=== PATIENT | male | born 1960 | race Caucasian/White ===

== ENCOUNTER 2018-04-04 23:17 | Inpatient (IN) ==
--- NOTE | 2018-04-05 00:18 | DR.GENAD ---
HPI - PCP Primary Care Physician: PATRICIA - Complaint/Symptoms Chief Complaint Doctors Comments: Patient is complaining of pain and swelling in his left lower leg with chest pain and SOB. States he bumped his leg 2-3 weeks ago but it did not bother him then. States his left leg with swelling last night and chest pain and he took nitroglycerin x2 last night but none tonight. States he has had stents x2 and is followed by Dr. Gomez. States he has had problems walking without having to stop and rest on his knees to catch his breath. He denies alcohol or tobacco usage. States he has noticed at times his heart rate would go up to 180 and he is not taking any medicines for his heart rate. States he is taking Plavix and aspirin. Chief Complaint:: STARTED HAVING PAIN, SWELLING AND NUMBNESS IN LEG LAST NIGHT WHICH HAS BECAME WORSE TODAY. PATIENT STATES THAT HE DOES NOT REMEMBER DOING ANYTHING TO HIS LEG TO CAUSE IT TO BE THIS WAY. Self Treatment fo Chief Complaint: TOOK HALF A PAIN PILL PRIOR TO COMING - Nurses notes reviewed Nurses Notes Review: Yes - Source History Provided: Patient - Mode of Arrival Mode of Arrival: Ambulatory - Timing Onset of Chief Complaint: 04/04/18 Came on: Gradually - Duration Duration: Constant How lon Duration: Days - Location Location: left leg pain and swelling - Severity Severity: Moderate - Modifying Factors Worsens:: walking and movement Improves:: resting PMH - PMH Past Medical History: Yes Past Medical History: Coronary Artery Disease, GERD, Hypertension, Hypothyroidism Past Medical History Comment: PACEMAKER Past Surgical History: Yes Surgical History: Angioplasty/Stents Past Surgical History Comment: PACEMAKER - Family History History of Family Medical Conditions: Yes Family Medical History: [place], Heart Failure, Hypertension - Social History Does patient currently use any type of tobacco product: No Have you used tobacco products in the last 12 months: No Type of Tobacco Use: None Does any household member use tobacco: No Alcohol Use: None Do you use any recreational Drugs:: No Lives With: Family Lives Where: Home - infectious screening In the last 2 months have you had wt loss of >10#?: NO Have you had fever, night sweats or hemotysis?: No Have you traveled outside the country in the last 6 months?: No Isolation: Standard ROS - Review of Systems Constitutional: No Symptoms Reported Eyes: No Symptoms Reported. negative: See HPI, Eye Pain, Blurred Vision, Tearing, Discharge, Photophobia, Diplopia, Other ENTM: No Symptoms Reported Respiratoy: No Symptoms Reported, Short of Breath Cardiovascular: No Symptoms Reported, Chest Pain, Edema, Palpitations. negative : See HPI, Syncope, Cyanosis, Skin Mottling, Other Gastrointestinal/Abdominal: No Symptoms Reported Genitourinary: No Symptoms Reported. negative: See HPI, Discharge, Dysuria, Frequency, Hematuria, Pain, Bleeding, Other Neurological: No Symptoms Reported, Tremors, Weakness, Dizziness Musculoskeletal: No Symptoms Reported, Leg (pain and swelling) Integumentary: No Symptoms Reported Hematologic/Lymphatic: No Symptoms Reported Endocrine: No Symptoms Reported Psychiatric: No Symptoms Reported. negative: See HPI, Anxiety, Depression, Hallucinations, Excessive crying, Suicidal, Other PE - General Limitations: No Limitations General Appearance: Alert, In Distress (mild) - Head Head Exam: Normal Inspection, Atraumatic, Normocephalic - Eyes Eye exam: Normal Appearance, PERRL, EOMI. negative: Scleral Icterus, Conjunctival Injection, Nystagmus, Miosis, Mydrasis, Periorbital Swelling, Periorbital Tenderness, Other - ENT ENT Exam: Normal Exam, Normal Oropharynx, Normal External Ear Exam, Mucous Membranes Moist, TM's Normal Bilaterally External Ear Exam: Normal External Inspection TM/Canal Exam: Bilateral Normal Nose Exam: Normal Nose Exam Mouth Exam: Normal Inspection Throat Exam: Normal Inspection - Neck Neck Exam: Normal Inspection, Full ROM, Trachea Midline. negative: Tenderness, Meningismus, Lymphadenopathy, Thyromegaly, Other - Chest Chest Inspection: Normal Inspection, Symmetric Chest Wall Rise - Respiratory Respiratory Exam: Normal Lung Sounds Bilat Respiratory Exam: Bilateral Clear to Auscultation - Cardiovascular Cardiovascular Exam: Regular Rate, Normal Rhythm, Normal Heart Sounds - Abdominal Exam Abdominal Exam: Normal Inspection, Normal Bowel Sounds, Soft Abdominal Tenderness: negative: RUQ, RLQ, LUQ, LLQ, Epigastrium, Suprapubic, Diffuse, Mild, Moderate, Severe, Other - Extremities Extremities Exam: Normal Inspection, Full ROM, Tenderness (left lower leg with ecchymosis middle leg with edema 2+; no calf tenderness), Normal Capillary Refill, Edema - Back Back Exam: Normal Inspection, Full ROM. negative: Tenderness, (R) CVA Tenderness, (L) CVA Tenderness, Muscle Spasm, Paraspinal Tenderness, Vertebral Tenderness, Rashes, (R) Sciatic Notch Tenderness, (L) Sciatic Notch Tendern, (R ) Straight Leg Raise, (L) Straight Leg Raise, Other - Neurologic Neurological Exam: Alert, Oriented X3, CN II-XII Intact, Reflexes Normal. negative: Normal Gait (gait not tested) - Psychiatric Psychiatric Exam: Normal Affect, Normal Mood - Skin Skin Exam: Warm, Dry, Intact, Normal Color - Vital Signs Vitals: Temperature 98.3 F Pulse Rate 64 Respiratory Rate 18 Blood Pressure 130/70 O2 Sat by Pulse Oximetry 97 Course - Consultation Called: :07 Call Returned: 02:07 (Patient to be admitted) - Education/Counseling Education/Counseling: Patient, Family Educated On: Treatment, Diagnosis, Needs for Follow Up ROR - Labs Reviewed Laboratory Results Reviewed?: Yes (All labs and x-ray results reviewed and discussed with patient and family) Result Diagrams: 04/05/18 00:29 04/05/18 00:29 - XRAY XRAY Interpreted by: Radiologist (CXR: Cardiomegaly without severe edema or other acute abnormality.) - EKG Rate: 71 [place]: Normal Rhythm: PVCs, Paced ST: Nonsp - Labs Reviewed Laboratory: WBC 6.6 X10^3/uL (3.6-10.0) 04/05/18 00: RBC 4.55 X10^6/uL (4.7-6.0) L 04/05/18 00:29 Hgb 13.6 g/dL (13.5-18.0) 04/05/18 00: Hct 40.3 % (42.0-54.0) L 04/05/18 00: MCV 88.5 fL (80.0-100.0) 04/05/18 00:29 MCH 29.9 pg (27.0-34.0) 04/05/18 00: MCHC 33.8 g/dL (33.0-35.0) 04/05/18 00: RDW 14.9 % (11.6-16.5) 04/05/18 00: Plt Count 268 X10^3/uL (150.0-450.0) 04/05/18 00: MPV 7.7 fL (7.4-11.0) 04/05/18 00: Neut % (Auto) 50.1 % (42.0-75.0) 04/05/18 00: Lymph % (Auto) 36.1 % (21.0-51.0) 04/05/18 00: [place] % (Auto) 8.9 % (0.0-13.0) 04/05/18 00: Eos % (Auto) 3.8 % (0.9-2.9) H 04/05/18 00: Baso % (Auto) 1.1 % (0.2-1.0) H 04/05/18 00:29 Neut # (Auto) 3.3 x10^3/uL (2.2-4.8) 04/05/18 00: Lymph # (Auto) 2.4 X10^3/uL (1.3-2.9) 04/05/18 00: [place] # (Auto) 0.6 x10^3/uL (0.3-0.8) 04/05/18 00: Eos # (Auto) 0.3 x10^3/uL (0.0-0.2) H 04/05/18 00: Baso # (Auto) 0.1 X10^3/uL (0.0-0.1) 04/05/18 00: Absolute Nucleated RBC 0.0 /100WBC 04/05/18 00: INR Target Range - 04/05/18: INR 1.02 (0.8-1.3) 04/05/18 00: APTT 26.8 SECONDS (22.9-36.5) 04/05/18 00: PTT Comment - 04/05/18 00:29 D-Dimer 274 ng/mL (0-400) 04/05/18 00:29 Sodium 143 mmol/L (136-145) 04/05/18 00:29 Corrected Sodium TNP 04/05/18: Potassium 4.1 mmol/L (3.5-5.1) 04/05/18 00: Chloride 109 mmol/L (98-107) H 04/05/18 00: Carbon Dioxide 24.9 mmol/L (21-32) 04/05/18 00: BUN 15 mg/dL (7-18) 04/05/18 00:29 Creatinine 1.46 mg/dL (0.70-1.30) H 04/05/18 00:29 Est GFR (MDRD) Af Amer > 60 (>60) 04/05/18 00:29 Est GFR (MDRD) Non-Af 53 (>60) L 04/05/18 00:29 Glucose 106 mg/dL (65-99) H 04/05/18 00:29 Calcium 8.4 mg/dL (8.5-10.1) L 04/05/18 00:29 Corrected Calcium TNP 04/05/18 00:29 Magnesium 2.1 mg/dL (1.7-2.9) 04/05/18 00:29 Total Bilirubin 0.40 mg/dL (0.2-1.0) 04/05/18 00:29 AST 22 Units/L (15-37) 04/05/18 00:29 ALT 30 Units/L (12-78) 04/05/18 00:29 Alkaline Phosphatase 101 Units/L (46-116) 04/05/18 00:29 Creatine Kinase 272 Units/L (39-308) 04/05/18 00:29 CK-MB (CK-2) 3.1 ng/mL (0-4.0) 04/05/18 00: CK/CKMB % Calc 1.1 % (<4) 04/05/18 00: Troponin I < 0.02 ng/mL (0-1.5) 04/05/18 00:29 B-Natriuretic Peptide 92.3 pg/mL (0-79) H 04/05/18 00:29 Total Protein 7.0 g/dL (6.4-8.2) 04/05/18 00:29 Albumin 3.5 g/dL (3.4-5.0) 04/05/18 00:29 Globulin 3.5 g/dL (2.5-4.5) 04/05/18 00:29 Albumin/Globulin Ratio 1.0 Ratio (1.1-2.1) L 04/05/18 00:29 - Diagnosis Discharge Problem: Chest pain, rule out acute myocardial infarction, Ventricular trigeminy, Cardiomegaly, Left leg swelling Chronic kidney disease Qualifiers: Chronic kidney disease stage: stage 3 (moderate) Qualified Code(s): N18.3 - Chronic kidney disease, stage 3 (moderate) - Discharge Plan Disposition: ADMITTED INPATIENT Condition: Stable - Follow ups/Referrals Follow ups/Referrals: MALACHI GOMEZ [Primary Care Provider] - 3 days - Instructions
[2018-04-05 00:39] LABS: BASOPHILS # (AUTO) 0.1 X10^3/uL (0.0-0.1); BASOPHILS % (AUTO) 1.1 % (0.2-1.0); EOSINOPHILS # (AUTO) 0.3 x10^3/uL (0.0-0.2); EOSINOPHILS % (AUTO) 3.8 % (0.9-2.9); HEMATOCRIT 40.3 % (42.0-54.0); HEMOGLOBIN 13.6 g/dL (13.5-18.0); LYMPHOCYTES # (AUTO) 2.4 X10^3/uL (1.3-2.9); LYMPHOCYTES % (AUTO) 36.1 % (21.0-51.0); MEAN CORPUSCULAR HEMOGLOBIN 29.9 pg (27.0-34.0); MEAN CORPUSCULAR HGB CONC 33.8 g/dL (33.0-35.0); MEAN CORPUSCULAR VOLUME 88.5 fL (80.0-100.0); MEAN PLATELET VOLUME 7.7 fL (7.4-11.0); MONOCYTES # (AUTO) 0.6 x10^3/uL (0.3-0.8); MONOCYTES % (AUTO) 8.9 % (0.0-13.0); NEUTROPHILS # (AUTO) 3.3 x10^3/uL (2.2-4.8); NEUTROPHILS % (AUTO) 50.1 % (42.0-75.0); PLATELET COUNT 268 X10^3/uL (150.0-450.0); RED BLOOD COUNT 4.55 X10^6/uL (4.7-6.0); RED CELL DISTRIBUTION WIDTH 14.9 % (11.6-16.5); WHITE BLOOD COUNT 6.6 X10^3/uL (3.6-10.0)
[2018-04-05] MEDS: NS 1000 ML 1,000 ML IV SCH ×2 (00:49→16:48)
--- NOTE | 2018-04-05 00:57 | RAD ---
Chest AP portable Indication: Chest pain and tightness in the chest Findings: There is cardiomegaly with pacemaker leads. There is no pneumothorax or effusion. Chronic l j luis changes noted without consolidation. Impression: Cardiomegaly without severe edema or other acute abnormality. Follow-up with PA and later al chest as needed Reported By:
[2018-04-05 01:01] LABS: ALANINE AMINOTRANSFERASE 30 Units/L (12-78); ALBUMIN 3.5 g/dL (3.4-5.0); ALKALINE PHOSPHATASE 101 Units/L (46-116); ASPARTATE AMINO TRANSFERASE 22 Units/L (15-37); BLOOD UREA NITROGEN 15 mg/dL (7-18); CALCIUM 8.4 mg/dL (8.5-10.1); CARBON DIOXIDE 24.9 mmol/L (21-32); CHLORIDE 109 mmol/L (98-107); CKMB % 1.1 % (<4); CREATINE KINASE 272 Units/L (39-308); CREATINE KINASE MB 3.1 ng/mL (0-4.0); CREATININE 1.46 mg/dL (0.70-1.30); MAGNESIUM 2.1 mg/dL (1.7-2.9); SODIUM 143 mmol/L (136-145); TROPONIN I < 0.02 ng/mL (0-1.5); eGFR NON BLACK RACES 53 (>60)
--- NOTE | 2018-04-05 01:56 | RAD ---
Left tibia and fibula-two views, 4 images Indication: Pain and swelling. Numbness. Findings: Minimal medial femorotibial joint space narrowing noted. Tibiotalar joint is intact. No swe lling is seen about the ankle. There is mild pretibial soft tissue swelling without cortical lucency or malalignment seen. Impression: Soft tissue swelling about the foreleg, particularly anteriorly without acute osseous abn ormality or fracture. Reported By:
[2018-04-05] MEDS: NITROSTAT SL PRN ×6 (04:00→06:01)
[2018-04-05] MEDS ORDERED: NITROSTAT SL ONE (04:01)
[2018-04-05] MEDS ORDERED: MORPHINE SULFATE INJ 2 MG INJ ONE (04:39)
[2018-04-05] MEDS: MORPHINE SULFATE INJ 2 MG INJ IVP PRN ×3 (04:40→13:48)
[2018-04-05] MEDS ORDERED: LOPRESSOR TAB 25 MG PO SCH (05:00)
[2018-04-05 05:05] VITALS: BMI 29.6
[2018-04-05] MEDS ORDERED: HEPARIN SODIUM IN D5W 25,000 UNITS/500 ML BAG IV ONE (06:18)
[2018-04-05] MEDS ORDERED: HEPARIN SODIUM INJ 5000 UNITS IVP ONE (06:24)
[2018-04-05] MEDS: HEPARIN SODIUM IN D5W 25,000 UNITS/500 ML BAG IV PRN (06:38)
[2018-04-05 06:42] LABS: BASOPHILS # (AUTO) 0.1 X10^3/uL (0.0-0.1); BASOPHILS % (AUTO) 1.3 % (0.2-1.0); EOSINOPHILS # (AUTO) 0.2 x10^3/uL (0.0-0.2); EOSINOPHILS % (AUTO) 4.7 % (0.9-2.9); HEMATOCRIT 37.6 % (42.0-54.0); HEMOGLOBIN 12.9 g/dL (13.5-18.0); LYMPHOCYTES # (AUTO) 2.1 X10^3/uL (1.3-2.9); LYMPHOCYTES % (AUTO) 39.6 % (21.0-51.0); MEAN CORPUSCULAR HEMOGLOBIN 30.5 pg (27.0-34.0); MEAN CORPUSCULAR HGB CONC 34.3 g/dL (33.0-35.0); MEAN CORPUSCULAR VOLUME 88.8 fL (80.0-100.0); MEAN PLATELET VOLUME 7.7 fL (7.4-11.0); MONOCYTES # (AUTO) 0.4 x10^3/uL (0.3-0.8); MONOCYTES % (AUTO) 8.4 % (0.0-13.0); NEUTROPHILS # (AUTO) 2.4 x10^3/uL (2.2-4.8); PLATELET COUNT 230 X10^3/uL (150.0-450.0); RED BLOOD COUNT 4.23 X10^6/uL (4.7-6.0); RED CELL DISTRIBUTION WIDTH 14.5 % (11.6-16.5); WHITE BLOOD COUNT 5.3 X10^3/uL (3.6-10.0)
[2018-04-05 06:56] LABS: ALANINE AMINOTRANSFERASE 28 Units/L (12-78); ALBUMIN 3.2 g/dL (3.4-5.0); ALKALINE PHOSPHATASE 93 Units/L (46-116); ASPARTATE AMINO TRANSFERASE 21 Units/L (15-37); BLOOD UREA NITROGEN 14 mg/dL (7-18); CALCIUM 8.1 mg/dL (8.5-10.1); CARBON DIOXIDE 24.5 mmol/L (21-32); CHLORIDE 109 mmol/L (98-107); COR CA(FOR HYPOALB) 8.7 mg/dL (8.5-10.1); CREATININE 1.29 mg/dL (0.70-1.30); SODIUM 142 mmol/L (136-145); TOTAL PROTEIN 6.4 g/dL (6.4-8.2); eGFR NON BLACK RACES > 60 (>60)
[2018-04-05 07:28] LABS: CKMB % 1.1 % (<4); CREATINE KINASE 238 Units/L (39-308); CREATINE KINASE MB 2.7 ng/mL (0-4.0); TROPONIN I < 0.02 ng/mL (0-1.5)
[2018-04-05 08:02] LABS: CHOL/HDL RATIO 7.7 (0.0-5.0)
[2018-04-05] MEDS ORDERED: NITROGLYCERIN IV PREMIX 50 MG 50 MG/250 ML BAG IV PRN (10:21)
[2018-04-05] MEDS ORDERED: ASPIRIN EC 81 MG PO ONE (12:40)
[2018-04-05] MEDS: PROTONIX TAB 40 MG PO SCH (12:45)
[2018-04-05] MEDS: ASPIRIN 81 MG CHEWTAB PO SCH (12:45)
[2018-04-05] MEDS: PLAVIX PO SCH (12:45)
[2018-04-05] MEDS: SYNTHROID 112 mcg TAB PO SCH (12:45)
[2018-04-05 13:17] LABS: CKMB % 1.2 % (<4); CREATINE KINASE 215 Units/L (39-308); CREATINE KINASE MB 2.5 ng/mL (0-4.0); TROPONIN I < 0.02 ng/mL (0-1.5)
[2018-04-05] MEDS ORDERED: MORPHINE SULFATE INJ 2 MG INJ IVP PRN (13:52)
--- NOTE | 2018-04-05 14:55 | VAS ---
HISTORY: Bilateral lower extremity pain and chest pain Study: Bilateral lower extremity venous Doppler Comparison: None TECHNIQUE: Multiple keane scale as well as spectral and color flow Doppler images of the deep venous system were obtained of the right and left lower extremity. FINDINGS: The deep venous system of the right and left lower extremities was evaluated from the level of the co mmon femoral vein through the popliteal vein. Normal color flow and augmentation can be observed. I n addition, normal compression is seen throughout the deep venous system. IMPRESSION: Negative for DVT. Reported By:
[2018-04-05] MEDS ORDERED: LOPRESSOR INJ 5 MG AMP IVP ONE (17:58)
[2018-04-05] MEDS ORDERED: LOPRESSOR INJ 5 MG AMP ONE (18:03)
[2018-04-05] MEDS: LOPRESSOR TAB 50 MG PO SCH ×2 (19:03→22:45)
[2018-04-05] MEDS ORDERED: FLOMAX PO SCH (21:00)
[2018-04-05] MEDS ORDERED: CRESTOR TAB 10 MG PO SCH (21:00)
--- NOTE | 2018-04-05 23:51 | DR.H&P ---
H&P - History & Physical for Day of: H&P Date: 04/05/18 - Chief Complaint Chief Complaint: BILATERAL LEG PAIN, CHEST PAIN, SOB - History of Present Illness History of Present Illness: IS A 58 YEAR OLD PATIENT OF TERRENCE Harmon WHO PRESENTED TO THE EMERGENCY ROOM WITH COMPLAINTS OF BILATERAL LEG PAIN AND SWELLING. HE REPORTS THAT SYMPTOMS STARTED ON DAY AGO AND HAS PROGREESIVELY GOTTEN WORSE. HE DENIES KNOWLEDGE OF INJURY. HE ALSO REPORTS CHEST PAIN AND SHORTNESS OF BREATH. PATIENT STATES THAT HE TOOK NITROGLYCERINE X 2 LAST NIGHT, BUT NONE SINCE. HE HAS A HISTORY OF CARDIAC STENTS X 2 THAT WERE PLACED IN . PATIENT REPORTS TWO OTHER BLOCKAGES THAT WERE LESS THAN 50%. HE ALSO REPORTS THAT HE HAS NOTICED HIS HEARTRATE INCREASE TO 180BPM AT TIMES. HE CURRENTLY TAKES ASPIRIN, PLAVIX, AND ATENOLOL. ON ARRIVAL TO THE ER, VITALS WERE 98.3-64-18-97%-130/70. LABS WERE OBTAINED. ABNORMAL LAB VALUES INCLUDE THE FOLLOWING: RBC 4.55, HCT 40.3, CHLORIDE 109, CREATININE 1.46, GLUCOSE 106, CALCIUM 8.4, BNP 92.3, TRIGLYCERIDES 189, CHOLESTEROL 238, LDL 169, HDL 31. CARDIAC ENZYMES WITHIN NORMAL LIMITS. EKG REVEALS ATRIAL PACED COMPLEXES WITH HR 71, VENTRICULAR TRIGEMINY. CHEST XRAY OBTAINED AND REVEALED: There is cardiomegaly with pacemaker leads. There is no pneumothorax or effusion. Chronic lung changes noted without consolidation. A LEFT TIB/FIB XRAY WAS OBTAINED AND REVEALED: Soft tissue swelling about the foreleg, particularly anteriorly without acute osseous abnormality or fracture. HE WAS ADMITTED TO THE HOSPITAL FOR FURTHER EVALUATION AND TREATMENT OF CHEST PAIN, RULE OUT AMI AND VENTRICULAR TRIGEMINY. WE PLANNED TO OBTAIN SERIAL CARDIAC ENZYMES AND EKG AND CONTINUE TO MONITOR PATIENT. FOLLOWING ADMISSION, PATIENT BEGAN WITH RUNE OF VENTRICULAR TACHYCARDIA. HE REPORTED THAT CHEST PAIN AND SHORTNESS OF BREATH COMES AND GOES. AT APPROXIMATELY 0400, STAFF REPORTS THAT HE WAS NOTED WITH A 2 MINUTE, 7 SECOND RUN OF VTACH WITH ASSOCIATED RIGHT HAND AND LEFT FOOT NUMBNESS. HE WAS GIVEN NITROGLYCERIN AND STATED THAT PAIN HAD RESOLVED. HIS ATENOLOL WAS DISCONTINUED AND PATIENT WAS STARTED ON METOPROLOL 25MG PO BID. AFTER CONTINUED RUNS OF VTACH AND INTEREMITTENT CHEST PAIN, HE WAS STARTED ON A HEPARIN DRIP AND NITROGLYCERIN DRIP. WE ALSO STARTED HIM ON CRESTOR 20MG PO HS AND PLANNED TO OBTAIN BILATERAL LOWER EXTREMITY VENOUS DOPPLERS. OTHERWISE, WE PLAN TO FOLLOW UP WITH SERIAL CARDIAC ENZYMES AND EKGS, MAINTENANCE MANAGER, AND CONTINUE TO MONITOR PATIENT. - Past Medical History Past Medical History: Coronary Artery Disease, GERD, Hypertension, Hypothyroidism - Past Surgical History Surgical History: Angioplasty/Stents - Family History Family Medical History: [place], Heart Failure, Hypertension - Social History Does patient currently use any type of tobacco product: No Have you used tobacco products in the last 12 months: No Type of Tobacco Use: None Does any household member use tobacco: No Alcohol Use: None Drug Use: None - Medications Home Medications: naproxen [From Naprosyn] Allergy (Verified 04/04/18 23:31) CONTINUE taking the following medications aspirin 81 mg PO ONCE 04/04/18 [History] clopidogrel [Plavix] 1 tab PO DAILY 04/04/18 [History] levothyroxine 112 mcg PO ONCE 04/04/18 [History] pantoprazole [Protonix] 1 tab PO DAILY 04/04/18 [History] tamsulosin [Flomax] 1 tab PO HS 04/04/18 [History] - Review of Systems Constitutional: No Symptoms Reported Eyes: No Symptoms Reported ENT: No Symptoms Reported Respiratory: Shortness of Breath Cardiovascular: Chest Pain Gastrointestinal: No Symptoms Reported Genitourinary: No Symptoms Reported Musculoskeletal: Leg Pain Skin: No Symptoms Reported Neurological: No Symptoms Reported - Physical Exam Vital Signs: Temperature 97.7 F Pulse Rate [Apical] 70 Pulse Rate 64 Respiratory Rate 14 Blood Pressure [Left Arm] 131/89 Blood Pressure 180/118 O2 Sat by Pulse Oximetry 95 Oriented: Normal Eyes: Normal Ear: Normal Nose: Normal Throat: Normal Respiratory: Diminished Throughout Cardiovascular: Normal, Irregular. negative: S3, S4, Murmur : Normal Auscultation: Bowel Sounds: Normal Palpation: Normal Tenderness: Normal Skin: Normal Musculoskeletal: Normal Psychiatric: Normal Mood Description: Calm Affect: Normal Speech Pattern: Clear - Assessment/Plan (1) Chest pain, rule out acute myocardial infarction Status: Acute Plan: ADMIT, SERIAL CARDIAC ENZYMES & EKG, HEPARIN DRIP, NITRO DRIP, CONTINUE TO MONITOR (2) Cardiac arrhythmia Qualifiers: Arrhythmia type: ventricular tachycardia Qualified Code(s): I47.2 - Ventricular tachycardia Status: Acute Plan: SERIAL CARDIAC ENZYMES & EKG, HEPARIN DRIP, NITRO DRIP, CONTINUE TO MONITOR (3) Left leg swelling Status: Acute Plan: OBTAIN BLE VENOUS DOPPLER, CONTINUE TO MONITOR - Allergies Allergies/Adverse Reactions: Allergies Allergy/AdvReac Type Severity Reaction Status Date / Time naproxen [From Naprosyn] Allergy Verified 04/04/18 23:31
[2018-04-06] MEDS: NS 1000 ML 1,000 ML IV SCH ×2 (02:13→05:27)
[2018-04-06] MEDS: HEPARIN SODIUM IN D5W 25,000 UNITS/500 ML BAG IV PRN (02:13)
[2018-04-06 07:11] LABS: BASOPHILS % (AUTO) 0.9 % (0.2-1.0); EOSINOPHILS # (AUTO) 0.2 x10^3/uL (0.0-0.2); EOSINOPHILS % (AUTO) 4.8 % (0.9-2.9); HEMATOCRIT 41.2 % (42.0-54.0); HEMOGLOBIN 13.8 g/dL (13.5-18.0); LYMPHOCYTES # (AUTO) 1.4 X10^3/uL (1.3-2.9); LYMPHOCYTES % (AUTO) 29.3 % (21.0-51.0); MEAN CORPUSCULAR HEMOGLOBIN 29.8 pg (27.0-34.0); MEAN CORPUSCULAR HGB CONC 33.5 g/dL (33.0-35.0); MEAN CORPUSCULAR VOLUME 88.8 fL (80.0-100.0); MEAN PLATELET VOLUME 7.5 fL (7.4-11.0); MONOCYTES # (AUTO) 0.3 x10^3/uL (0.3-0.8); MONOCYTES % (AUTO) 6.3 % (0.0-13.0); NEUTROPHILS # (AUTO) 2.8 x10^3/uL (2.2-4.8); NEUTROPHILS % (AUTO) 58.7 % (42.0-75.0); PLATELET COUNT 226 X10^3/uL (150.0-450.0); RED BLOOD COUNT 4.64 X10^6/uL (4.7-6.0); RED CELL DISTRIBUTION WIDTH 14.8 % (11.6-16.5); WHITE BLOOD COUNT 4.8 X10^3/uL (3.6-10.0)
[2018-04-06 07:19] LABS: ALANINE AMINOTRANSFERASE 27 Units/L (12-78); ALBUMIN 3.1 g/dL (3.4-5.0); ALKALINE PHOSPHATASE 99 Units/L (46-116); ASPARTATE AMINO TRANSFERASE 19 Units/L (15-37); BLOOD UREA NITROGEN 13 mg/dL (7-18); CALCIUM 8.3 mg/dL (8.5-10.1); CARBON DIOXIDE 25.3 mmol/L (21-32); CHLORIDE 107 mmol/L (98-107); CREATININE 1.03 mg/dL (0.70-1.30); SODIUM 140 mmol/L (136-145); TOTAL PROTEIN 6.5 g/dL (6.4-8.2); eGFR NON BLACK RACES > 60 (>60)
[2018-04-06] MEDS: LOPRESSOR TAB 50 MG PO SCH (09:12)
[2018-04-06] MEDS: PLAVIX PO SCH (09:17)
[2018-04-06] MEDS: PROTONIX TAB 40 MG PO SCH (09:17)
[2018-04-06] MEDS ORDERED: NITRODUR PATCH 0.4 MG/HR TD SCH (10:00)
[2018-04-06] MEDS: ASPIRIN 81 MG CHEWTAB PO SCH (11:12)
[2018-04-06] MEDS: SYNTHROID 112 mcg TAB PO SCH (11:12)
[2018-04-06 13:23] VITALS: BP 157/96
[2018-04-06] MEDS ORDERED: CHECK PATCH XX SCH (21:00)
--- NOTE | 2018-04-18 00:02 | DR.CARTERD ---
- Discharge Summary for: Discharge Summary for Date of:: 04/06/18 - Admission Date Date of Admission: 04/05/18 - Admission Diagnoses Admission Diagnosis: (1) Chest pain, rule out acute myocardial infarction (2) Cardiac arrhythmia (3) Left leg swelling - Discharge Date Discharge Date: 04/06/18 - Discharge Diagnoses Discharge Diagnosis: (1) Chest pain, rule out acute myocardial infarction (2) Cardiac arrhythmia (3) Left leg swelling - Hospital Course Hospital Course: MR. PATEL IS A 58 YEAR OLD PATIENT OF DR. TERRENCE COURTNEY WHO PRESENTED TO THE EMERGENCY ROOM WITH COMPLAINTS OF BILATERAL LEG PAIN AND SWELLING. HE REPORTED THAT SYMPTOMS STARTED ON DAY PRIOR AND HAD PROGRESSIVELY WORSENED. HE DENIED KNOWLEDGE OF INJURY. HE ALSO REPORTED CHEST PAIN AND SHORTNESS OF BREATH. PATIENT STATED THAT HE TOOK NITROGLYCERIN X 2 THE NIGHT PRIOR, BUT NONE SINCE. HE HAD A HISTORY OF CARDIAC STENTS X 2 THAT WERE PLACED IN . PATIENT REPORTED TWO OTHER BLOCKAGES THAT WERE LESS THAN 50%. HE ALSO REPORTED THAT HE HAD NOTICED HIS HEART RATE INCREASED TO 180BPM AT TIMES. HE WAS TAKING ASPIRIN, PLAVIX, AND ATENOLOL AT HOME. ON ARRIVAL TO THE ER, VITALS WERE 98.3-64-18-97%- 130/70. LABS WERE OBTAINED. ABNORMAL LAB VALUES INCLUDED THE FOLLOWING: RBC 4.55 , HCT 40.3, CHLORIDE 109, CREATININE 1.46, GLUCOSE 106, CALCIUM 8.4, BNP 92.3, TRIGLYCERIDES 189, CHOLESTEROL 238, LDL 169, HDL 31. CARDIAC ENZYMES WITHIN NORMAL LIMITS. EKG REVEALED ATRIAL PACED COMPLEXES WITH HR 71, VENTRICULAR TRIGEMINY. CHEST XRAY OBTAINED AND REVEALED: THERE WAS CARDIOMEGALY WITH PACEMAKER LEADS; NO PNEUMOTHORAX OR EFFUSION; CHRONIC LUNG CHANGES NOTED WITH CONSOLIDATION. A LEFT TIB/FIB XRAY WAS OBTAINED AND REVEALED:N SOFT TISSUE SWELLING ABOUT THE FORELEG, PARTICULARLY ANTERIORLY WITHOUT ACUTE OSSEOUS ABNORMALITY OR FRACTURE. HE WAS ADMITTED TO THE HOSPITAL FOR FURTHER EVALUATION AND TREATMENT OF CHEST PAIN, RULE OUT AMI AND VENTRICULAR TRIGEMINY. WE OBTAINED SERIAL CARDIAC ENZYMES AND EKG AND CONTINUED TO MONITOR PATIENT. FOLLOWING ADMISSION, PATIENT BEGAN WITH RUNS OF VENTRICULAR TACHYCARDIA. HE REPORTED THAT CHEST PAIN AND SHORTNESS OF BREATH WAS INTERMITTENT. AT APPROXIMATELY 0400, STAFF REPORTED THAT HE WAS NOTED WITH A 2 MINUTE, 7 SECOND, RUN OF VTACH WITH ASSOCIATED RIGHT HAND AND LEFT FOOT NUMBNESS. HE WAS GIVEN NITROGLYCERIN AND STATED THAT PAIN HAD RESOLVED. HIS ATENOLOL WAS DISCONTINUED AND PATIENT WAS STARTED ON METOPROLOL 25MG PO BID. AFTER CONTINUED RUNS OF VTACH AND INTEREMITTENT CHEST PAIN, HE WAS STARTED ON A HEPARIN DRIP AND NITROGLYCERIN DRIP. WE ALSO STARTED HIM ON CRESTOR 20MG PO HS. WE CONTINUED WITH SERIAL CARDIAC ENZYMES AND EKGS, RECORDING STUDIO SET UP WORKER, AND CONTINUED TO MONITOR PATIENT. ON DAY TWO, PATIENT CONTINUED TO HAVE RUNS OF VTACH WITH CHEST PAIN AND SHORTNESS OF BREATH. CARDIAC ENZYMES WERE NORMAL BUT WE BELIEVED THAT PATIENT WOULD BENEFIT FROM A INFORMATION SYSTEMS SECURITY OFFICER. WE CONTACTED DR. HULL AT [place], [place] FOR TRANSFER. DR. HULL ACCEPTED PATIENT. PATIENT WAS TRANSFERRED TO [facility] IN STABLE CONDITION WITH EMS. - Discharge Medications Discharge Medications: Home Medication List aspirin 81 mg PO ONCE 04/04/18 [History] clopidogrel [Plavix] 1 tab PO DAILY 04/04/18 [History] levothyroxine 112 mcg PO ONCE 04/04/18 [History] pantoprazole [Protonix] 1 tab PO DAILY 04/04/18 [History] tamsulosin [Flomax] 1 tab PO HS 04/04/18 [History] Prescriptions: - Discharge Disposition Discharge Disposition: PATIENT IS TO FOLLOW UP WITH DR. GOMEZ UPON DISCHARGE FROM [facility].
== END 2018-04-06 13:55 | disposition short-term general hospital (02) | DRG 313 ==
LOC: ICU 23:30 → ER 23:30 → ICU 04-05 03:00
PROVIDERS: ADMIT Internal Medicine; ATTEND Internal Medicine
DX: I47.2 Ventricular tachycardia; R07.89 Other chest pain; I25.10 Atherosclerotic heart disease of native coronary artery without angina pectoris; R00.8 Other abnormalities of heart beat; M79.662 Pain in left lower leg; K21.9 Gastro-esophageal reflux disease without esophagitis; Z95.0 Presence of cardiac pacemaker; E03.8 Other specified hypothyroidism; R20.0 Anesthesia of skin; Z79.01 Long term (current) use of anticoagulants; R94.31 Abnormal electrocardiogram [ECG] [EKG]; R06.02 Shortness of breath; I51.7 Cardiomegaly; R60.0 Localized edema
CPT/HCPCS: 36415; 71010; 71045; 73590; 80053; 80061; 82550; 82553; 83735; 83880; 84484; 85025; 85378; 85610; 85730; 93005; 93970; 96365; 96367; 99284; A4216; A4222; G0378; J1644; J2270; J3490; J7030